=== PATIENT | female | born 1970 | race Caucasian/White ===

== ENCOUNTER 2016-07-23 07:37 | Emergency (ER) | payer MEDICAID ==
[~2016-07-23] VITALS: Wt 118.2 kg
[~2016-07-23 07:37] MED LIST: ACET500T98 PO; IBUP200C PO; OSLT75C PO; UDROBAC PO; UDROBDM PO
[2016-07-23] MEDS ORDERED: LISI10TA2 PO (08:18)
[2016-07-23] MEDS ORDERED: LANC1COM MC (08:18)
--- NOTE | 2016-07-23 08:35 | ERD ---
ER Documentation Chief Complaint Date/Time DATE: 07/23/16 TIME: 08:25 Chief Complaint no complaints per pt. needs med refill on bp medications HPI 45-year-old female with a past medical history of hypertension and diabetes presents to the ED for a medication refill. States that she is here for a refill for her glucose strips and her lisinopril 10 mg. States that she was unable to get an appointment with her primary care physician. Reports that she also takes metformin at home. Denies any fever, chills, abdominal pain, nausea , vomiting, chest pain, shortness of breath, pleuritic chest pain, dyspnea on exertion, leg swelling, dysuria, urgency, frequency. Reports that her blood sugars were normal this morning. ROS All systems reviewed and are negative except as per history of present illness. Medications Home Meds Active Scripts Lisinopril* (Lisinopril*) 10 Mg Tablet, 10 MG PO DAILY, #60 TAB Prov:GOLD ROBLERO PA-C 07/23/16 Lancets/Blood Glucose Strips (Fora [id number] Lanct-Str) 1 Each Combo..pkg , 1 BOX , #1 Prov:GOLD ROBLERO PA-C 07/23/16 Oseltamivir Phosphate* (Tamiflu*) 75 Mg Capsule, 75 MG PO BID, #10 CAP 0 Refills Prov:FLO SHAH PA-C 08/01/15 Guaifenesin-Dextromethorphan* (Robitussin* DM) 100MG/10MG/5ML Syrup, 5 ML PO Q6H Y for COUGH, #240 ML 0 Refills Prov:FLO SHAH PA-C 08/01/15 Ibuprofen* (Ibuprofen*) 200 Mg Capsule, 400 MG PO Q6, #60 CAP 0 Refills Prov:FLO SHAH PA-C 08/01/15 Acetaminophen (Tylenol) 500 Mg Tab, 500 MG PO Q6, #30 TAB 0 Refills Prov:FLO SHAH PA-C 08/01/15 Guaifenesin-Codeine Phosphate* (Robitussin* AC) 5 Ml Syrup, 5 ML PO Q6H Y for COUGH, #120 ML 0 Refills Prov:FLO SHAH PA-C 07/15/15 Allergies Allergies: Coded Allergies: No Known Allergy (Unverified , 10/11/14) PMhx/Soc History of Surgery: No Anesthesia Reaction: No Hx Neurological Disorder: No Hx Respiratory Disorders: No Hx Cardiac Disorders: Yes (HTN) Hx Psychiatric Problems: No Hx Miscellaneous Medical Probl: Yes (DM) Hx Alcohol Use: No Hx Substance Use: No Hx Tobacco Use: No Physical Exam Vitals Vital Signs Date Time Temp Pulse Resp B/P Pulse Ox O2 Delivery O2 Flow Rate FiO2 07/23/16 07:41 98.1 76 21 120/57 98 Physical Exam Const: Oqd-yjm-myvhubeff, well-nourished. In no acute distress. Head: Atraumatic, normocephalic Eyes: Normal Conjunctiva without injection ENT: Normal external ear, nose and mouth. Neck: Full range of motion. No meningismus. Resp: Clear to auscultation bilaterally. No wheezing, rhonchi, rales, or crackles. No accessory muscle use. No retractions. Cardio: Regular rate and rhythm, no murmurs Skin: No petechiae or rashes Back: No midline tenderness. No CVA tenderness. Ext: No cyanosis, or edema. Cap refill less than 2 seconds. Distal pulses intact bilaterally. Neur: Awake and alert. Normal gait and coordination. Muscle strength 5/5. Sensation intact bilaterally. Psych: Normal Mood and Affect Procedures/MDM This is a 45-year-old female with a past medical history of diabetes and hypertension presents the ED for a medication refill. Patient is afebrile and nontoxic-appearing. Patient's blood pressure was noted to be 120/57. Patient is not complaining of any symptoms. I will refill the lisinopril 10 mg once daily quantity 60 pills at this time. Glucose strips will also be prescribed for patient. Taking medication safely was advised to patient. Low suspicion for symptomatic emergent HTN, acute myocardial infarction, pneumothorax, pneumonia, cardiac tamponade, pulmonary embolism, AAA, aortic dissection, Boerhaave's syndrome, acute abdomen, DKA, hyperglycemia, HHS, cardiac dysrhythmias,meningitis, intracranial bleed, seizure, stroke, TIA or other emergent conditions. Discharge medications: Lisinopril, Glucose strips Follow up with primary care physician in 1-2 days. Instructed patient to return to the ED sooner for any worsening symptoms. Patient's questions were answered. Patient understood and agreed with discharge plan. Patient discharged stable. Departure Diagnosis: Primary Impression: Encounter for medication refill Condition: Stable Patient Instructions: Taking Medicine Safely, High Blood Pressure (Hypertension ), Understanding Type 2 Diabetes Referrals: [facility] YOU HAVE RECEIVED A MEDICAL SCREENING EXAM AND THE RESULTS INDICATE THAT YOU DO NOT HAVE A CONDITION THAT REQUIRES URGENT TREATMENT IN THE EMERGENCY DEPARTMENT. FURTHER EVALUATION AND TREATMENT OF YOUR CONDITION CAN WAIT UNTIL YOU ARE SEEN IN YOUR DOCTORS OFFICE WITHIN THE NEXT 1-2 DAYS. IT IS YOUR RESPONSIBILITY TO MAKE AN APPOINTMENT FOR FOLOW-UP CARE. IF YOU HAVE A PRIMARY DOCTOR --you should call your primary doctor and schedule an appointment IF YOU DO NOT HAVE A PRIMARY DOCTOR YOU CAN CALL OUR PHYSICIAN REFERRAL HOTLINE AT IF YOU CAN NOT AFFORD TO SEE A PHYSICIAN YOU CAN CHOSE FROM THE FOLLOWING [facility] [address] [facility] [address] [facility] [facility] [address] [facility] [address] [facility] [facility] [address] [facility]. [facility]. [address] [facility]. [facility] YOU HAVE RECEIVED A MEDICAL SCREENING EXAM AND THE RESULTS INDICATE THAT YOU DO NOT HAVE A CONDITION THAT REQUIRES URGENT TREATMENT IN THE EMERGENCY DEPARTMENT. FURTHER EVALUATION AND TREATMENT OF YOUR CONDITION CAN WAIT UNTIL YOU ARE SEEN IN YOUR DOCTORS OFFICE WITHIN THE NEXT 1-2 DAYS. IT IS YOUR RESPONSIBILITY TO MAKE AN APPOINTMENT FOR FOLOW-UP CARE. IF YOU HAVE A PRIMARY DOCTOR --you should call your primary doctor and schedule and appointment IF YOU DO NOT HAVE A PRIMARY DOCTOR YOU CAN CALL OUR PHYSICIAN REFERRAL HOTLINE AT . IF YOU CAN NOT AFFORD TO SEE A PHYSICIAN YOU CAN CHOSE FROM THE FOLLOWING [facility]: [facility] [address] [place] [address] [facility] [address] [place] [address] [facility] + [facility] [address] [place] [address] [facility] Additional Instructions: Visite a colmenares mdsuleman kidd para un EXAMEN.Regrese a estas instalaciones si no se mejora juwan esperbamos o juwan le dijimos. GOLD ROBLERO PA-C Jul 23, 2016 08:35
== END 2016-07-23 08:28 | disposition home or self-care (01) ==
LOC: FTE 07:37
DX: Z76.0 Encounter for issue of repeat prescription (principal); I10 Essential (primary) hypertension; E11.9 Type 2 diabetes mellitus without complications
CPT/HCPCS: 99281

== ENCOUNTER 2016-09-09 08:09 | Emergency (ER) | payer MEDICAID ==
[~2016-09-09] VITALS: Wt 115.0 kg
[~2016-09-09 08:09] MED LIST changes: +LANC1COM MC; +LISI10TA2 PO
[2016-09-09] MEDS ORDERED: AZIT250T94 PO (09:20)
[2016-09-09] MEDS ORDERED: FLUT9.9S NASAL (09:20)
[2016-09-09] MEDS ORDERED: CETI10CA PO (09:20)
[2016-09-09] MEDS ORDERED: UDROBDM PO (09:21)
[2016-09-09] MEDS ORDERED: IBUP-1542 PO (09:21)
--- NOTE | 2016-09-09 09:26 | ERD ---
ER Documentation Chief Complaint Date/Time DATE: 09/09/16 TIME: 09:22 Chief Complaint COUGH AND CONGESTION WITH SORE THROAT FOR THE PST 3 DAYS. HPI This 45-year-old female presents to the emergency department today for sore throat, cough, chest congestion for the past 4 days. Patient states she has taken NyQuil with no improvement in symptoms. States that the cough is worse at night. States that she is unsure if she has had any fevers. States he has a history of high blood pressure and diabetes. Denies any chest pain or shortness of breath.. ROS All systems reviewed and are negative except as per history of present illness. Medications Home Meds Active Scripts Ibuprofen* (Motrin*) 600 Mg Tab, 600 MG PO Q6, #30 TAB Prov:MANE CHAVEZ PA-C 09/09/16 Guaifenesin-Dextromethorphan* (Robitussin* DM) 100MG/10MG/5ML Syrup, 10 ML PO Q6H Y for COUGH for 5 Days, ML Prov:MANE CHAVEZ PA-C 09/09/16 Fluticasone Propionate (Flonase Allergy Relief) 9.9 Ml [place].susp, 2 SPRAY NASAL DAILY, #1 BOTTLE TO EACH NOSTRIL Prov:MANE CHAVEZ PA-C 09/09/16 Cetirizine Hcl* (Zyrtec*) 10 Mg Capsule, 10 MG PO DAILY, #14 TAB.CHEW Prov:MANE CHAVEZ PA-C 09/09/16 Azithromycin* (Zithromax*) 250 Mg Tablet, 250 MG PO .SLIM DIRECTED, #6 TAB TAKE 500 MG (2 TABS) THE FIRST DAY THEN 250 MG (1 TAB) DAYS 2-5 Prov:MANE CHAVEZ PA-C 09/09/16 Lisinopril* (Lisinopril*) 10 Mg Tablet, 10 MG PO DAILY, #60 TAB Prov:GOLD ROBLERO PA-C 07/23/16 Lancets/Blood Glucose Strips (Fora [id number] Lanct-Str) 1 Each Combo..pkg , 1 BOX , #1 Prov:GOLD ROBLERO PA-C 07/23/16 Oseltamivir Phosphate* (Tamiflu*) 75 Mg Capsule, 75 MG PO BID, #10 CAP 0 Refills Prov:FLO SHAH ROSA MARIA 08/01/15 Guaifenesin-Dextromethorphan* (Robitussin* DM) 100MG/10MG/5ML Syrup, 5 ML PO Q6H Y for COUGH, #240 ML 0 Refills Prov:FLO SHAH ROSA MARIA 08/01/15 Ibuprofen* (Ibuprofen*) 200 Mg Capsule, 400 MG PO Q6, #60 CAP 0 Refills Prov:FLO SHAH JOVANIC 08/01/15 Acetaminophen (Tylenol) 500 Mg Tab, 500 MG PO Q6, #30 TAB 0 Refills Prov:FLO SHAH ROSA MARIA 08/01/15 Guaifenesin-Codeine Phosphate* (Robitussin* AC) 5 Ml Syrup, 5 ML PO Q6H Y for COUGH, #120 ML 0 Refills Prov:FLO SHAH ROSA MARIA 07/15/15 Allergies Allergies: Coded Allergies: No Known Allergy (Unverified , 07/23/16) PMhx/Soc History of Surgery: No Anesthesia Reaction: No Hx Neurological Disorder: No Hx Respiratory Disorders: No Hx Cardiac Disorders: Yes (HTN) Hx Psychiatric Problems: No Hx Miscellaneous Medical Probl: Yes (DM) Hx Alcohol Use: No Hx Substance Use: No Hx Tobacco Use: No Smoking Status: Never smoker Physical Exam Vitals Vital Signs Date Time Temp Pulse Resp B/P Pulse Ox O2 Delivery O2 Flow Rate FiO2 09/09/16 08:12 97.9 78 20 132/67 98 Physical Exam Const: Obese, no acute distress Head: Atraumatic Eyes: Normal Conjunctiva ENT: Ears TMs normal. Nose no drainage. Throat no erythema no exudate. Neck: Full range of motion..~ No meningismus. Resp: Clear to auscultation bilaterally. No absent breath sounds. No wheezing. Cardio: Regular rate and rhythm, no murmurs Skin: No petechiae or rashes Back: No midline or flank tenderness Psych: Normal Mood and Affect Procedures/MDM This is a 45-year-old female who presents the emergency department today complaining of cough congestion and sore throat for the past 4 days. Patient's physical exam is essentially benign. She is afebrile and otherwise well- appearing. She is not tachycardic and her oxygen saturation 98%. I do not feel the patient requires a chest x-ray at this time.. I have low suspicion for strep pharyngitis, peritonsillar abscess, retropharyngeal abscess, otitis media, PNA, sinusitis, abscess, meningitis, sepsis, or other acute infectious bacterial process, I will give the patient a prescription for azithromycin to treat possible bronchitis. Other differentials to consider are URI, allergic rhinitis. Low suspicion for pneumonia, PE, abscess, pneumothorax however the azithromycin would cover for the pneumonia. Patient was also given a prescription for Robitussin, Zyrtec, Flonase and Motrin. At this time the patient is stable for discharge and outpatient management. They should follow up with their PCP in the next 1-2. They may return to the emergency department sooner if symptoms persist or worsen. Patient understood and agreed with the plan. Departure Diagnosis: Primary Impression: URI (upper respiratory infection) URI type: unspecified URI Qualified Code: J06.9 - Upper respiratory tract infection, unspecified type Condition: Fair Patient Instructions: Preventing Common Respiratory Infections Referrals: your clinic Additional Instructions: Llame al doctor MAANA y renzo leona WHIT PARA DENTRO DE 1-2 MCRAE.Dgale a la secretaria que nosotros le instruimos hacer esta whit.Avise o llame si colmenares condicin se empeora antes de la whit. Regresa aqui si peor o no mejor. Take medications as prescribed MANE CHAVEZ PA-C Sep 09, 2016 09:26
== END 2016-09-09 09:28 | disposition home or self-care (01) ==
LOC: FTE 08:09
DX: J06.9 Acute upper respiratory infection, unspecified (principal); I10 Essential (primary) hypertension; E11.9 Type 2 diabetes mellitus without complications
CPT/HCPCS: 99283

== ENCOUNTER 2018-07-06 05:52 | Emergency (ER) | payer SELFPAY ==
[~2018-07-06] VITALS: Ht 165.1 cm; Wt 143.4 kg
[~2018-07-06 05:52] MED LIST changes: +AZIT250T PO; +CETI10CA PO; +CODE5LIQ2 PO; +FLUT9.9S NASAL; +GUAI5SYR2 PO; +IBUP-1542 PO; +IBUP-1982 PO; -IBUP200C PO; +OSEL75CA23 PO; -OSLT75C PO; -UDROBAC PO; -UDROBDM PO
[2018-07-06 05:57] VITALS: BP 148/69; PULSE 75; RESP 22; Ht 165.1 cm; Wt 143.4 kg
--- NOTE | 2018-07-06 06:19 | ERD ---
ER Documentation Chief Complaint Chief Complaint COUGH WITH CONGESTIONS, BODY ACHES X4DAYS HPI 47-year-old female with history of diabetes, presents to the emergency department, complaining of 4 days with worsening of upper respiratory symptoms including cough, fever, sore throat, chest congestion and general malaise. The patient has been taking conu-ozk-wkgemvy medication without improvement of the symptoms. The patient is requesting a prescription for antibiotics. ROS All systems reviewed and are negative except as per history of present illness. Medications Home Meds Active Scripts Albuterol Sulfate* (Albuterol Sulfate* Liq) 2 Mg/5 Ml Syrup, 4 MG PO TID, #120 ML Prov:MANJINDER ULLOA MD 07/06/18 Diphenhydramine Hcl* (Benadryl*) 50 Mg Cap, 50 MG PO QHS PRN for COUGH for 5 Days, #5 CAP Prov:MANJINDER ULLOA MD 07/06/18 Amoxicillin* (Amoxicillin*) 500 Mg Cap, 500 MG PO TID for 7 Days, CAP Prov:MANJINDER ULLOA MD 07/06/18 Ibuprofen* (Motrin*) 600 Mg Tab, 600 MG PO Q6, #30 TAB Prov:MANE CHAVEZ PA-C 09/09/16 Guaifenesin-Dextromethorphan* (Robitussin* DM) 100MG/10MG/5ML Syrup, 10 ML PO Q6H PRN for COUGH for 5 Days, ML Prov:MANE CHAVEZ PA-C 09/09/16 Fluticasone Propionate (Flonase Allergy Relief) 9.9 Ml [place].susp, 2 SPRAY NASAL DAILY, #1 BOTTLE TO EACH NOSTRIL Prov:MANE CHAVEZ PA-C 09/09/16 Cetirizine Hcl* (Zyrtec*) 10 Mg Capsule, 10 MG PO DAILY, #14 TAB.CHEW Prov:MANE CHAVEZ PA-C 09/09/16 Azithromycin* (Zithromax*) 250 Mg Tablet, 250 MG PO .ZPACK DIRECTED, #6 TAB TAKE 500 MG (2 TABS) THE FIRST DAY THEN 250 MG (1 TAB) DAYS 2-5 Prov:MANE CHAVEZ PA-C 09/09/16 Lisinopril* (Lisinopril*) 10 Mg Tablet, 10 MG PO DAILY, #60 TAB Prov:ROBLEROGOLD Lanza PA-C 07/23/16 Lancets/Blood Glucose Strips (Fora [id number] Lanct-Str) 1 Each Combo..pkg, 1 BOX MC, #1 Prov:ROBLEROGOLD Lanza PA-C 07/23/16 Oseltamivir Phosphate* (Tamiflu*) 75 Mg Capsule, 75 MG PO BID, #10 CAP 0 Refills Prov:PABLOFLO PA-C 08/01/15 Guaifenesin-Dextromethorphan* (Robitussin* DM) 100MG/10MG/5ML Syrup, 5 ML PO Q6H PRN for COUGH, #240 ML 0 Refills Prov:FLO SHAH PA-C 08/01/15 Ibuprofen* (Ibuprofen*) 200 Mg Capsule, 400 MG PO Q6, #60 CAP 0 Refills Prov:FLO SHAH PA-C 08/01/15 Acetaminophen (Tylenol) 500 Mg Tab, 500 MG PO Q6, #30 TAB 0 Refills Prov:FLO SHAH PA-C 08/01/15 Guaifenesin-Codeine Phosphate* (Robitussin* AC) 5 Ml Syrup, 5 ML PO Q6H PRN for COUGH, #120 ML 0 Refills Prov:PABLOFLO PA-C 07/15/15 Allergies Allergies: Coded Allergies: No Known Allergy (Unverified , 07/23/16) PMhx/Soc History of Surgery: No Anesthesia Reaction: No Hx Neurological Disorder: No Hx Respiratory Disorders: No Hx Cardiac Disorders: Yes (HTN) Hx Psychiatric Problems: No Hx Miscellaneous Medical Probl: Yes (DM) Hx Alcohol Use: No Hx Substance Use: No Hx Tobacco Use: No Smoking Status: Never smoker Physical Exam Vitals Vital Signs Date Temp Pulse Resp B/P (MAP) Pulse Ox O2 O2 Flow FiO2 Time Delivery Rate 07/06/18 97.1 75 22 148/69 97 05:57 (95) Physical Exam Const: No acute distress Head: Atraumatic Eyes: Normal Conjunctiva ENT: Normal External Ears, Nose and Mouth. Neck: Full range of motion. No meningismus. Resp: Clear to auscultation bilaterally Cardio: Regular rate and rhythm, no murmurs Abd: Soft, non tender, non distended. Normal bowel sounds Skin: No petechiae or rashes Back: No midline or flank tenderness Ext: No cyanosis, or edema Neur: Awake and alert Psych: Normal Mood and Affect Procedures/MDM Vital signs stable, no respiratory distress. Differential diagnosis include but not limited to: Respiratory infection bacterial/viral/fungal. Influenza, asthma, COPD, pneumonitis, allergies, GERD. Less likely foreign body aspiration, cardiac related. Physical examination and clinical presentation consistent most likely with viral infection. Treatment options and clinical impression discussed with the patient who agrees with management. The patient is stable to be treated outpatient and will be discharged home. Antibiotics not indicated at this time. The patient is requesting a prescription for antibiotics, a prescription will be given with instructions to continue symptomatic and conservative management for 3 days, trying to avoid use of unnecessary antibiotics due to the possible side effects and complications. if there is no improvement of the symptoms in 72 hours, okay to start antibiotics. Some side effects of prescribed medications (headache, rash, nausea, vomiting, diarrhea, interactions with other medications) were reviewed. The patient needs to follow up with the primary care provider in the next 48h. If symptoms persist, worsen or new symptoms develop, then patient should return to the ED immediately. Disclaimer: Inadvertent spelling and grammatical errors are likely due to EHR/dictation software use and do not reflect on the overall quality of patient care. Also, please note that the electronic time recorded on this note does not necessarily reflect the actual time of the patient encounter. Departure Diagnosis: Primary Impression: Cough Condition: Stable Additional Instructions: Muchas china por [facility] para colmenares servicio. Esperamos que en colmenares visita a la perfecto de emergencia colmenares problema medico haya sido solucionado y que se sienta mucho mejor. Para estar seguros que colmenares mejoria sigue en proceso, le pedimos el favor de hacer leona sofiya de seguimiento medico con colmenares doctor primario en los proximos 2-4 bobo. Lleve con usted estos documentos y las medicinas recetadas. Si bogdan sintomas empeoran, NO SE ESPERE, por favor regrese a perfecto de emergencia I NMEDIATAMENTE. En ismael que usted no tenga un mdico de atencin primaria: Llame al mdico o clnica comunitaria de referencia que aparece abajo jayden las horas de consultorio para hacer leona sofiya para que le vean. CLINICAS: [facility] [phone] [address] [facility] [phone] [address] [facility] [phone] [address] [facility] [phone] [facility] [phone] [address] [facility]. [phone] MANJINDER BLACKWELL MD Jul 06, 2018 06:19
[2018-07-06] MEDS ORDERED: ALBU2SYR3 PO (06:27)
[2018-07-06] MEDS ORDERED: AMOX500C2 PO (06:27)
[2018-07-06] MEDS ORDERED: BEN50 PO (06:27)
== END 2018-07-06 07:20 | disposition home or self-care (01) ==
LOC: FTE 05:52
DX: R05 Cough (principal); I10 Essential (primary) hypertension; E11.9 Type 2 diabetes mellitus without complications
CPT/HCPCS: 99283

== ENCOUNTER 2018-11-16 09:32 | Emergency (ER) | payer SELFPAY ==
[~2018-11-16] VITALS: Ht 160 cm; Wt 150.0 kg
[~2018-11-16 09:32] MED LIST changes: +ALBU2SYR3 PO; +AMOX500C2 PO; +BEN50 PO
[2018-11-16 10:08] VITALS: BP 153/86; PULSE 65; RESP 20; Ht 160 cm; Wt 150.0 kg
[2018-11-16] MEDS ORDERED: PSEU-79 PO (10:41)
--- NOTE | 2018-11-16 11:46 | ERD ---
ER Documentation Chief Complaint Chief Complaint c/o on and off left ear itching x3 months, already took PO antbx HPI 48-year-old female presenting with ear itching and fullness x3 months. Patient states she has intermittent episodes of vertigo secondary to her ear irritation. She has been using antibiotics and Medrol Dosepak with no alleviation. Denies any use of ear drops. Denies other medical problems. NKDA. Surgical history denies personal history denies ROS All systems reviewed and are negative except as per history of present illness. Medications Home Meds Active Scripts Pseudoephedrine Hcl* (Suphedrin*) 30 Mg Tablet, 30 MG PO Q6 PRN for CONGESTION, #30 TAB Prov:ADOLPH HERNANDEZ PA-C 11/16/18 Albuterol Sulfate* (Albuterol Sulfate* Liq) 2 Mg/5 Ml Syrup, 4 MG PO TID, #120 ML Prov:MANJINDER ULLOA MD 07/06/18 Diphenhydramine Hcl* (Benadryl*) 50 Mg Cap, 50 MG PO QHS PRN for COUGH for 5 Days, #5 CAP Prov:MANJINDER ULLOA MD 07/06/18 Amoxicillin* (Amoxicillin*) 500 Mg Cap, 500 MG PO TID for 7 Days, CAP Prov:MANJINDER ULLOA MD 07/06/18 Ibuprofen* (Motrin*) 600 Mg Tab, 600 MG PO Q6, #30 TAB Prov:MANE CHAVEZ PA-C 09/09/16 Guaifenesin-Dextromethorphan* (Robitussin* DM) 100MG/10MG/5ML Syrup, 10 ML PO Q6H PRN for COUGH for 5 Days, ML Prov:MANE CHAVEZ PA-C 09/09/16 Fluticasone Propionate (Flonase Allergy Relief) 9.9 Ml [place].susp, 2 SPRAY NASAL DAILY, #1 BOTTLE TO EACH NOSTRIL Prov:MANE CHAVEZ PA-C 09/09/16 Cetirizine Hcl* (Zyrtec*) 10 Mg Capsule, 10 MG PO DAILY, #14 TAB.CHEW Prov:MANE CHAVEZ PA-C 09/09/16 Azithromycin* (Zithromax*) 250 Mg Tablet, 250 MG PO .ZPACK DIRECTED, #6 TAB TAKE 500 MG (2 TABS) THE FIRST DAY THEN 250 MG (1 TAB) DAYS 2-5 Prov:MANE CHAVEZ PA-C 09/09/16 Lisinopril* (Lisinopril*) 10 Mg Tablet, 10 MG PO DAILY, #60 TAB Prov:GOLD ROBLERO PA-C 07/23/16 Lancets/Blood Glucose Strips (Fora [id number] Lanct-Str) 1 Each Combo..pkg, 1 BOX MC, #1 Prov:GOLD ROBLERO PA-C 07/23/16 Oseltamivir Phosphate* (Tamiflu*) 75 Mg Capsule, 75 MG PO BID, #10 CAP 0 Refills Prov:FLO SHAH PA-C 08/01/15 Guaifenesin-Dextromethorphan* (Robitussin* DM) 100MG/10MG/5ML Syrup, 5 ML PO Q6H PRN for COUGH, #240 ML 0 Refills Prov:FLO SHAH PA-C 08/01/15 Ibuprofen* (Ibuprofen*) 200 Mg Capsule, 400 MG PO Q6, #60 CAP 0 Refills Prov:FLO SHAH PA-C 08/01/15 Acetaminophen (Tylenol) 500 Mg Tab, 500 MG PO Q6, #30 TAB 0 Refills Prov:FLO SHAH PA-C 08/01/15 Guaifenesin-Codeine Phosphate* (Robitussin* AC) 5 Ml Syrup, 5 ML PO Q6H PRN for COUGH, #120 ML 0 Refills Prov:FLO SHAH PA-C 07/15/15 Allergies Allergies: Coded Allergies: No Known Allergy (Unverified , 07/23/16) PMhx/Soc History of Surgery: No Anesthesia Reaction: No Hx Neurological Disorder: No Hx Respiratory Disorders: No Hx Cardiac Disorders: Yes (HTN) Hx Psychiatric Problems: No Hx Miscellaneous Medical Probl: Yes (DM) Hx Alcohol Use: No Hx Substance Use: No Hx Tobacco Use: No FmHx Family History: No diabetes, No coronary disease, No other Physical Exam Vitals Vital Signs Date Temp Pulse Resp B/P (MAP) Pulse Ox O2 O2 Flow FiO2 Time Delivery Rate 11/16/18 98.1 65 20 153/86 97 10:08 (108) Physical Exam GENERAL: The patient is well-appearing, well-nourished, in no acute distress HEENT: Atraumatic. Conjunctivae are pink. Pupils equal, round, and reactive to light. There is no scleral icterus. Tympanic membranes clear bilaterally. Oropharynx clear. No nystagmus or photophobia. NECK: C-spine is soft and supple. There is no meningismus. There is no cerv ical lymphadenopathy. CHEST: Clear to auscultation bilaterally. There are no rales, wheezes or rhonchi. HEART: Regular rate and rhythm. No murmurs, clicks, rubs or gallops. Procedures/MDM MDM: 48-year-old female presenting with ear fullness. Patient's ear exam is within normal limits and I have low suspicion for infectious process. Patient will be discharged with supportive medications. Patient is told symptoms change or worsen to return immediately to the ER. All questions answered at discharge Departure Diagnosis: Primary Impression: Ear problem Condition: Stable Patient Instructions: Inner Ear Problems: Causes of Dizziness (Vertigo) Referrals: JERE ARREDONDO MD Additional Instructions: FOLLOW UP WITH YOUR PRIMARY CARE PHYSICIAN TOMORROW.Return to this facility if you are not improving as expected. ADOLPH HERNANDEZ PA-C November 16, 2018 11:46
== END 2018-11-16 11:24 | disposition home or self-care (01) ==
LOC: FTE 09:32
DX: H93.92 Unspecified disorder of left ear (principal); E11.9 Type 2 diabetes mellitus without complications; I10 Essential (primary) hypertension
CPT/HCPCS: 99282